=== PATIENT | female | born 1975 | race Caucasian/White ===

== ENCOUNTER 2020-06-29 18:47 | Emergency (ER) | payer OTHER ==
[~2020-06-29] VITALS: Ht 167.6 cm; Wt 129.7 kg
[2020-06-29 18:50] VITALS: BP_SYST 148
[2020-06-29 19:55] VITALS: BP_SYST 148
[2020-06-29] MEDS: HYDROcodone/ACETAMIN 10-325 MG TAB PO ONE (19:55)
[2020-06-29] MEDS: KETOROLAC TROMETHAMINE 60 MG/2 ML VIAL IM ONE (19:55)
[2020-06-29] MEDS: GABAPENTIN 100 MG CAPSULE PO ONE (19:55)
== END 2020-06-29 19:55 | disposition home or self-care (01) ==
LOC: SED 18:47
DX: M79.642 Pain in left hand (principal); M79.641 Pain in right hand
CPT/HCPCS: 96372; 99283; J1885